=== PATIENT | male | born 1960 | race Caucasian/White ===

== ENCOUNTER 2022-08-24 06:49 | Day surgery (SDC) | payer OTHER ==
[~2022-08-24] VITALS: Ht 198.1 cm; Wt 156.3 kg
[2022-08-24] MEDS ORDERED: BUSPAR 30MG30 MG/TAB PO (07:22)
[2022-08-24] MEDS ORDERED: PRINIVIL10 MG PO (07:23)
[2022-08-24] MEDS ORDERED: NOVOLIN N100 UNIT/1 SQ (07:25)
[2022-08-24 08:45] VITALS: BP 123/66; PULSE 66; TEMP 97
[2022-08-24 09:58] VITALS: BP 117/57; PULSE 66; TEMP 97.8
[2022-08-24 10:15] VITALS: BP 124/67; PULSE 65
[2022-08-24 10:30] VITALS: BP 122/69; PULSE 64
--- NOTE | 2022-08-24 19:26 | NUR ---
9006 - 3131 PT TO [facility] [place] 8 FROM OR S/P RIGHT TRANSMETATARSAL AMPUTATION SLEEPY, PLACED ON MONITOR, VSS ON RA RECEIVED REPORT AND ASSUMED CARE OF PT FROM [facility] (4X4, CURLEX, SHANI WRAP, STOCKING, OP SHOE) CDI ICE AND ELEVATION TO RLE. PT UPDATED TO DISPO AND REORIENTED TO ROOM, CALL LIGHT IN REACH AND BED LOW AND LOCKED. TO CALL FAMILY FOR PICKUP SHORTLY PROVIDED FOOD AND DRINK - TOLERATED WELL. VOIDED. PT HAS REMAINED A&O, NAD, VSS ON RA, TOLERATING PO, IS WITHOUT SIGNIFICANT COMPLAINT, WITH STEADY GAIT IV D/C'D. D/C INSTRUCTIONS, ANY FOLLOW UP REVIEWED AND HANDED TO PT. ALL QUESTIONS AND CONCERNS ADDRESSED TO PT SATISFACTION. TAKEN TO EXIT VIA W/C WITH ALL BELONGINGS AND PAPERWORK IN HAND, ASSISTED INTO PASSENGER SEAT OF POV. COUSIN TO DRIVE HOME.
== END 2022-08-24 10:50 | disposition home or self-care (01) ==
LOC: SDCO 06:49 → EDBD 06:49 → SDCO 08:30
DX: E11.52 Type 2 diabetes mellitus with diabetic peripheral angiopathy with gangrene (principal); I96 Gangrene, not elsewhere classified; M20.41 Other hammer toe(s) (acquired), right foot; I99.8 Other disorder of circulatory system; E66.01 Morbid (severe) obesity due to excess calories; Z79.4 Long term (current) use of insulin; Z68.41 Body mass index [BMI] 40.0-44.9, adult
CPT/HCPCS: J0690; J2704